=== PATIENT | female | born 1940 | race Caucasian/White ===

== ENCOUNTER 2018-02-18 17:10 | Emergency (ER) | payer OTHER ==
[~2018-02-18] VITALS: Ht 162.6 cm; Wt 72.0 kg
[~2018-02-18 17:10] MED LIST: AZELASTINE205.5 MCG/ BOTH NARES; CYANOCOBALAM1000 MCG PO; LASTACAFT3 ML BOTH EYES; LEVOTHYROXINE50 MCG PO; LOPRESSOR100 M1 PO; METOPROLOL SUCC50 MG PO; ONE-A-DAY ESSE1 EAC1 PO; PRESERVISION T1 EACH PO; PROTONIX40 MG PO; RESTASIS 01 DROP/0.4 BOTH EYES; SIMVASTATIN40 MG PO; SUCRALFATE1 GM PO; TRIAMCINOLONE A15 GM TP; TYLENOL WITH C1 EACH PO; VAGIFEM10 MCG VG; VENLAFAXINE HCL75 MG PO; XANAX1 MG PO; ZANTAC300 MG PO
[2018-02-18 17:48] LABS: HEMATOCRIT 40.8 % (36.0-46.0); HEMOGLOBIN 13.9 G/DL (11.9-15.5); MCH 32.8 PG (29.0-34.0); MCHC 34.1 G/DL (30.0-36.0); MCV 96.2 FL (83-99); PLATELET COUNT 197 K/uL (156-360); RBC DIS.WIDTH-CV 13.2 % (11.8-14.6); RBC DIS.WIDTH-SD 47.1 % (39-53); RED BLOOD COUNT 4.24 M/uL (3.80-5.20); WHITE BLOOD COUNT 5.9 K/uL (4.1-10.2)
[2018-02-18 17:57] LABS: APPEARANCE CLEAR ((CLEAR)); BILIRUBIN NEGATIVE; BLOOD SMALL; COLOR STRAW ((YELLOW)); GLUCOSE (STRIP) NEGATIVE; KETONES NEGATIVE; LEUKOCYTES NEGATIVE; NITRITE NEGATIVE; PROTEIN (STRIP) NEGATIVE; SPECIFIC GRAVITY 1.004 (1.000-1.030); UROBILINOGEN 0.2 MG/DL (0.2-1.0)
[2018-02-18 17:57] LABS: ALBUMIN 4.4 g/dL (3.2-4.8)
[2018-02-18 17:58] LABS: CHLORIDE 103 mEq/L (99-109); POTASSIUM 4.2 mEq/L (3.7-5.4); SODIUM 141 mEq/L (136-147)
[2018-02-18 18:00] LABS: BACTERIA NONE SEEN /HPF; EPITHELIAL CELLS NONE SEEN /HPF; HYALINE CASTS 0-5 /LPF; MUCUS NONE SEEN /LPF; RED BLOOD CELLS 0-5 /HPF (0-5); UCUL ADDED? NO; WHITE BLOOD CELLS 0-5 /HPF (0-5)
[2018-02-18 18:00] LABS: GLUCOSE 99 mg/dL (70-99)
[2018-02-18 18:02] LABS: TOTAL BILIRUBIN 0.3 mg/dL (0.0-1.0)
[2018-02-18 18:03] LABS: ALKALINE PHOSPHATASE 93 IU/L (3-129)
[2018-02-18 18:04] LABS: CREATININE 0.8 mg/dL (0.6-1.3); GFR ESTIMATE (CALCULATED) > 59 mL/min/
[2018-02-18 18:05] LABS: AST (GOT) 17 IU/L (2-34); UREA NITROGEN (BUN) 10 mg/dL (9-23)
[2018-02-18 18:07] LABS: ALT (GPT) 17 IU/L (3-49)
[2018-02-18 20:12] LABS: TROP-I INTERPRETATION NEGATIVE; TROPONIN-I < 0.01 ng/mL (0.0-0.30)
[2018-02-18 21:45] LABS: LIPASE 29 U/L (1.0-51.0)
[2018-02-18] MEDS ORDERED: LEVSIN0.125 MG PO (22:03)
[2018-02-18] MEDS ORDERED: ZOFRAN4 MG PO (22:03)
[2018-02-18] MEDS ORDERED: PEPCID20 MG PO (22:03)
[2018-02-18 23:03] VITALS: BP 145/89
== END 2018-02-18 23:05 | disposition home or self-care (01) ==
LOC: EME 17:10
DX: R10.13 Epigastric pain (principal); K44.9 Diaphragmatic hernia without obstruction or gangrene; D35.02 Benign neoplasm of left adrenal gland; D35.01 Benign neoplasm of right adrenal gland; N28.1 Cyst of kidney, acquired; R91.1 Solitary pulmonary nodule; K21.9 Gastro-esophageal reflux disease without esophagitis; I10 Essential (primary) hypertension; E78.5 Hyperlipidemia, unspecified; F41.9 Anxiety disorder, unspecified; F32.9 Major depressive disorder, single episode, unspecified; Z87.891 Personal history of nicotine dependence; Z98.890 Other specified postprocedural states; Z87.19 Personal history of other diseases of the digestive system; Z90.710 Acquired absence of both cervix and uterus; Z88.0 Allergy status to penicillin; Z91.041 Radiographic dye allergy status; Z88.8 Allergy status to other drugs, medicaments and biological substances
CPT/HCPCS: 74176; 80053; 81003; 83690; 84484; 85027; 93005; 99281; 99284; J2405; J7030; S0028

== ENCOUNTER → 2018-05-07 | Outpatient (CLI) | payer OTHER ==
[~2018-05-07] MED LIST changes: +LEVSIN0.125 MG PO; +PEPCID20 MG PO; +ZOFRAN4 MG PO
== END | disposition home or self-care (01) ==
LOC: NUC 10:32
DX: R94.6 Abnormal results of thyroid function studies (principal); E21.3 Hyperparathyroidism, unspecified; E55.9 Vitamin D deficiency, unspecified
CPT/HCPCS: 78072; A9500